=== PATIENT | male | born 2000 | race Caucasian/White ===

== ENCOUNTER → 2019-03-14 | Outpatient (CLI) | payer OTHER ==
[2019-03-14 12:45] LABS: HEMATOCRIT 42 % (40-54); MEAN CORPUSCULAR HEMOGLOBIN 30 PG (25-34); MEAN CORPUSCULAR HGB CONC 33 G/DL (32-36); MEAN CORPUSCULAR VOLUME 89 FL (80-99); RED CELL DISTRIBUTION WIDTH 13.2 % (10.0-14.5); WHITE BLOOD COUNT 13.5 10^3/uL (4.3-11.0)
[2019-03-14 12:46] LABS: BAND NEUTROPHILS 10 %; BASOPHILS % (AUTO) 0 % (0-10); BASOPHILS % (MANUAL) 0 %; EOSINOPHILS % (AUTO) 0 % (0-10); EOSINOPHILS % (MANUAL) 0 %; LYMPHOCYTES # (AUTO) 0.9 X 10^3 (1.0-4.0); LYMPHOCYTES % (AUTO) 7 % (12-44); LYMPHOCYTES % (MANUAL) 6 %; MEAN PLATELET VOLUME 8.7 FL (7.4-10.4); MONOCYTES # (AUTO) 1.1 X 10^3 (0.0-1.0); MONOCYTES % (AUTO) 8 % (0-12); MONOCYTES % (MANUAL) 5 %; NEUTROPHILS # (AUTO) 11.4 X 10^3 (1.8-7.8); NEUTROPHILS % (AUTO) 85 % (42-75); NEUTROPHILS % (MANUAL) 79 %; PLATELET COUNT 286 10^3/uL (130-400); RBC MORPH NORMAL
== END ==
LOC: LAB FS 12:10
PROVIDERS: ATTEND Nurse Practitioner
DX: J03.90 Acute tonsillitis, unspecified (principal)
CPT/HCPCS: 36415; 85007; 85027; 86663; 86664; 86665